=== PATIENT | female | born 1960 | race Caucasian/White ===

== ENCOUNTER → 2024-03-28 08:23 | Outpatient (REF) | payer BC, SELFPAY | LOC: WDC 08:23 | PROVIDERS: ATTENDING PHYSICIAN Nurse Practitioner Adult Health; FAMILY PHYSICIAN Nurse Practitioner Adult Health | DX: Z12.31 Encounter for screening mammogram for malignant neoplasm of breast (principal) | CPT/HCPCS: 77063; 77067 ==

== ENCOUNTER → 2025-05-31 11:10 | Outpatient (REF) | payer BC, SELFPAY | LOC: WDC 11:10 | PROVIDERS: ATTENDING PHYSICIAN Nurse Practitioner Adult Health; FAMILY PHYSICIAN Nurse Practitioner Adult Health | DX: Z12.31 Encounter for screening mammogram for malignant neoplasm of breast (principal) | CPT/HCPCS: 77063; 77067 ==